=== PATIENT | female | born 1995 | race Two or more races ===

== ENCOUNTER 2020-01-20 13:46 | Inpatient (IN) | payer MEDICAID ==
[~2020-01-20] VITALS: Ht 154.9 cm; Wt 63.5 kg
[2020-01-20 14:26] LABS: Basophils # (auto) 0 10 ^3/uL (0-0.2); Basophils % (auto) 0.6 % (0.0-2.0); Eosinophils # (auto) 0 10 ^3/uL (0-0.8); Eosinophils % (auto) 0.6 % (0.0-7.0); Hematocrit 40.2 % (36.0-46.0); Hemoglobin 13.7 g/dL (12.2-16.2); Lymphocytes # (auto) 2.1 10 ^3/uL (0.4-5.4); Lymphocytes % (auto) 29.2 % (10.0-50.0); Mean Corpuscular Hemoglobin 30.6 pg (28.0-32.0); Mean Corpuscular Volume 89.9 fL (80.0-100.0); Monocytes # (auto) 0.4 10 ^3/uL (0-1.3); Monocytes % (auto) 5.6 % (0.0-12.0); Neutrophils # (auto) 4.6 10 ^3/uL (1.6-8.6); Nucleated Red Blood Cells % 0.1 %; Platelet Count (auto) 287 10^3/uL (140-450); Red Blood Cells 4.47 10^6/uL (4.0-5.20); White Blood Cell 7.3 10^3/uL (4.4-10.8)
[2020-01-20] MEDS ORDERED: PANTOPRAZOLE 40 MG/10 ML VIAL INJ IV STA (14:48)
[2020-01-20] MEDS ORDERED: SODIUM CHLORIDE 0.9% 1,000 ML IVB ONE (14:48)
[2020-01-20 14:57] LABS: Potassium 4.3 mmol/L (3.5-5.1)
[2020-01-20] MEDS ORDERED: ONDANSETRON HCL 4 MG/2 ML VIAL IV ONE (15:00)
[2020-01-20] MEDS ORDERED: MORPHINE SULFATE 4 MG/ML SYR/VIAL IV ONE (15:00)
[2020-01-20 15:01] LABS: BUN/Creatinine Ratio 30.2; Bilirubin, Total 0.4 mg/dL (0.2-1.0); Total Protein 7.5 g/dL (6.4-8.2)
[2020-01-20 15:08] LABS: Urine Bacteria NONE SEEN /hpf (None Seen); Urine Blood Negative /uL (Negative); Urine Mucus FEW (None Seen); Urine Specific Gravity 1.033 (1.001-1.035); Urine WBC 2 /hpf (0 - 5)
[2020-01-20] MEDS ORDERED: SODIUM CHLORIDE 0.9% 1,000 ML IV SCH (16:27)
[2020-01-20] MEDS ORDERED: NITROGLYCERIN 0.4 MG SL TAB SL PRN ×2 (16:30)
[2020-01-20] MEDS ORDERED: HYDROcodone-ACET 5/325MG TAB PO PRN (16:30)
[2020-01-20] MEDS ORDERED: ONDANSETRON HCL 4 MG/2 ML VIAL IV PRN (16:30)
[2020-01-20] MEDS ORDERED: DOCUSATE SOD 100 MG CAP PO PRN (16:30)
[2020-01-20] MEDS ORDERED: ALUM & MAG HYDROX-SIMETH LIQ(MAALOX) 30 ML PO PRN (16:30)
[2020-01-20] MEDS ORDERED: MORPHINE SULF INJ 2 MG/ML SYRINGE 1ML IV PRN ×3 (16:30)
[2020-01-20] MEDS ORDERED: LORazepam 0.5 MG TAB PO PRN (16:30)
[2020-01-20] MEDS ORDERED: D5W/LACTATED RINGERS 1,000 ML IV SCH (16:45)
[2020-01-20] MEDS ORDERED: cefTRIAXone 1GM/50ML D5W 50 ML IV ONE (16:45)
[2020-01-20 18:06] VITALS: BP 108/61
[2020-01-20] MEDS ORDERED: metroNIDAZOLE 500MG/100ML 100 ML IV SCH (22:00)
[2020-01-21] MEDS ORDERED: cefTRIAXone 1GM/50ML D5W 50 ML IV SCH (09:00)
[2020-01-21] MEDS ORDERED: ENOXAPARIN SOD 40 MG/0.4 ML SYRINGE SC SCH (10:00)
== END 2020-01-20 21:04 | disposition left against medical advice (07) | DRG 561 ==
LOC: ER 13:46 → OVERFLOW 13:47
PROVIDERS: ADMIT Hospitalist; ATTEND Internal Medicine
DX: O99.63 Diseases of the digestive system complicating the puerperium (principal); K80.00 Calculus of gallbladder with acute cholecystitis without obstruction; N20.0 Calculus of kidney; Z53.29 Procedure and treatment not carried out because of patient's decision for other reasons; Z88.2 Allergy status to sulfonamides
CPT/HCPCS: 36415; 76705; 80053; 81001; 83690; 84702; 85025; 87040; 87086; C9113; G0378; J0696; J2405

== ENCOUNTER 2022-08-01 17:47 | Emergency (ER) | payer MEDICAID ==
[~2022-08-01] VITALS: Ht 180.3 cm; Wt 58.5 kg
[2022-08-01 19:01] LABS: Urine Blood Negative /uL (Negative); Urine Specific Gravity 1.033 (1.001-1.035)
[2022-08-01] MEDS ORDERED: METR500T PO (20:35)
[2022-08-01] MEDS ORDERED: FLUC150T38 PO (20:35)
[2022-08-01] MEDS ORDERED: NITR-52 PO (20:36)
[2022-08-01 22:48] VITALS: BP 119/67
== END 2022-08-01 22:50 | disposition home or self-care (01) ==
LOC: ER 17:47
DX: N39.0 Urinary tract infection, site not specified (principal); N76.0 Acute vaginitis; L27.0 Generalized skin eruption due to drugs and medicaments taken internally; Z90.49 Acquired absence of other specified parts of digestive tract; Z88.2 Allergy status to sulfonamides
CPT/HCPCS: 36415; 81003